=== PATIENT | female | born 1970 | race American Indian/Alaskan Native ===

== ENCOUNTER 2019-03-09 10:41 | Inpatient (IN) | payer MEDICAID ==
[2019-03-09] MEDS ORDERED: ZOFRAN ODT PO ONE (11:47)
[2019-03-09] MEDS ORDERED: ANTIVERT PO ONE (11:47)
--- NOTE | 2019-03-09 12:43 | Emergency Department Report ---
ED Dizziness HPI - General Chief Complaint: Dizziness Stated Complaint: DIZZINESS Time Seen by Provider: 03/09/19 11:44 Source: patient Mode of arrival: Wheelchair Limitations: No Limitations - History of Present Illness Initial Comments: Patient is a 48-year-old female who has a past medical history of some mild hypertension in the past who is not been taking any medications who is complaining of right-sided headache for the past 2 days. Patient states yesterday morning she began having some throbbing headaches in the right frontal and right yazidism area. This states it lasted several hours and then resolved but has returned. Patient states she also has some dizziness and nausea and vomiting. States she has a spinning sensation when she lays flat and when she walks she feels uneven. Patient denies any weakness of arms legs chest pain shortness of breath fevers or chills at this time. - Related Data Previous Rx's Medication Instructions Recorded Last Taken Type HYDROcodone/ACETAMINOPHEN 1 each PO Q6H PRN #30 tablet 08/30/18 Unknown Rx [Hydrocodone-Acetamin 5-325 mg] Allergies Allergy/AdvReac Type Severity Reaction Status Date / Time No Known Allergies Allergy Verified 08/24/18 09:58 ED Review of Systems ROS: Stated complaint: DIZZINESS Other details as noted in HPI Comment: All other systems reviewed and negative ED Past Medical Hx - Past Medical History Previous Medical History?: No Hx Hypertension: No Hx HIV: No - Surgical History Past Surgical History?: Yes Additional Surgical History: hernia repair - Social History Smoking Status: Current Every Day Smoker Substance Use Type: None - Medications Home Medications: Home Medications Medication Instructions Recorded Confirmed Last Taken Type HYDROcodone/ACETAMINOPHEN 1 each PO Q6H PRN #30 tablet 08/30/18 Unknown Rx [Hydrocodone-Acetamin 5-325 mg] ED Physical Exam - General Limitations: No Limitations General appearance: alert, in no apparent distress - Head Head exam: Present: atraumatic, normocephalic - Eye Eye exam: Present: normal appearance, PERRL, EOMI - ENT ENT exam: Present: normal exam, mucous membranes moist - Neck Neck exam: Present: normal inspection - Respiratory Respiratory exam: Present: normal lung sounds bilaterally. Absent: respiratory distress, wheezes, rales - Cardiovascular Cardiovascular Exam: Present: regular rate, normal rhythm. Absent: systolic murmur, diastolic murmur, rubs, gallop - GI/Abdominal GI/Abdominal exam: Present: soft, normal bowel sounds. Absent: distended, tenderness, guarding, rebound - Extremities Exam Extremities exam: Present: normal inspection - Back Exam Back exam: Present: normal inspection - Neurological Exam Neurological exam: Present: alert, oriented X3, CN II-XII intact. Absent: motor sensory deficit - Psychiatric Psychiatric exam: Present: normal affect, normal mood - Skin Skin exam: Present: warm, dry, intact, normal color. Absent: rash ED Course Vital Signs 03/09/19 03/09/19 03/09/19 10:56 12:45 13:00 Temperature 97.9 F Pulse Rate 63 65 75 Respiratory 16 18 18 Rate Blood Pressure 161/87 130/67 142/69 [Right] O2 Sat by Pulse 100 100 100 Oximetry 03/09/19 03/09/19 03/09/19 13:15 13:30 13:45 Temperature Pulse Rate 69 70 69 Respiratory 17 17 17 Rate Blood Pressure 139/57 124/59 152/69 [Right] O2 Sat by Pulse 100 100 100 Oximetry - Reevaluation(s) Reevaluation #1: 03/09/19 12:42 During our initial discussion with the patient patient states for the past 2-3 days she's had some on and off dizziness is worse when she landed flat she feels suspended sensation with nausea and vomiting. Patient has some right-sided headache which goes to believe the patient likely has benign positional vertigo however at 12:30 patient states that she was trying to get to the door of her room and could hardly walk she feels as though there is some tightness of the chest and weakness of her left arm and leg. Patient is noted to have a left arm drift and a code stroke is being called at this time. 03/09/19 12:46 Please see [facility] was retroflexed change from her initial exam ED Medical Decision Making - Lab Data Result diagrams: 03/09/19 Unknown 03/09/19 Unknown Lab Results 03/09/19 03/09/19 03/09/19 Range/Units 13:23 Unknown Unknown WBC 14.3 H (4.5-11.0) K/mm3 RBC 4.69 (3.65-5.03) M/mm3 Hgb 14.2 (10.1-14.3) gm/dl Hct 43.6 H (30.3-42.9) % MCV 93 (79-97) fl MCH 30 (28-32) pg MCHC 33 (30-34) % RDW 13.9 (13.2-15.2) % Plt Count 328 (140-440) K/mm3 Lymph # [place] Add Manual Diff Complete Total Counted 100 Seg Neuts % (Manual) 67.0 (40.0-70.0) % Band Neutrophils % 1.0 % Lymphocytes % (Manual) 27.0 (13.4-35.0) % Reactive Lymphs % (Man) 0 % Monocytes % (Manual) 5.0 (0.0-7.3) % Eosinophils % (Manual) 0 (0.0-4.3) % Basophils % (Manual) 0 (0.0-1.8) % Metamyelocytes % 0 % Myelocytes % 0 % Promyelocytes % 0 % Blast Cells % 0 % Nucleated RBC % Not Reportable Seg Neutrophils # Man 9.6 H (1.8-7.7) K/mm3 Band Neutrophils # 0.1 K/mm3 Lymphocytes # (Manual) 3.9 (1.2-5.4) K/mm3 Abs React Lymphs (Man) 0.0 K/mm3 Monocytes # (Manual) 0.7 (0.0-0.8) K/mm3 Eosinophils # (Manual) 0.0 (0.0-0.4) K/mm3 Basophils # (Manual) 0.0 (0.0-0.1) K/mm3 Metamyelocytes # 0.0 K/mm3 Myelocytes # 0.0 K/mm3 Promyelocytes # 0.0 K/mm3 Blast Cells # 0.0 K/mm3 WBC Morphology Not Reportable Hypersegmented Neuts Not Reportable Hyposegmented Neuts Not Reportable Hypogranular Neuts Not Reportable Smudge Cells Not Reportable Toxic Granulation Not Reportable Toxic Vacuolation Not Reportable Dohle Bodies Not Reportable Pelger-Huet Anomaly Not Reportable Lora Rods Not Reportable Platelet Estimate Consistent w auto Clumped Platelets Not Reportable Plt Clumps, EDTA Not Reportable Large Platelets Not Reportable Giant Platelets Not Reportable Platelet Satelliting Not Reportable Plt Morphology Comment Not Reportable RBC Morphology Normal Dimorphic RBCs Not Reportable Polychromasia Not Reportable Hypochromasia Not Reportable Poikilocytosis Not Reportable Anisocytosis Not Reportable Microcytosis Not Reportable Macrocytosis Not Reportable Spherocytes Not Reportable Pappenheimer Bodies Not Reportable Sickle Cells Not Reportable Target Cells Not Reportable Tear Drop Cells Not Reportable Ovalocytes Not Reportable Helmet Cells Not Reportable [place] Bodies Not Reportable Lake Rings Not Reportable [place] Cells Not Reportable Bite Cells Not Reportable Crenated Cell Not Reportable Elliptocytes Not Reportable Acanthocytes (Spur) Not Reportable Rouleaux Not Reportable Hemoglobin C Crystals Not Reportable Schistocytes Not Reportable Malaria parasites Not Reportable Florentin Bodies Not Reportable Hem Pathologist Commnt No PT 12.7 (12.2-14.9) Sec. INR 0.98 (0.87-1.13) APTT 29.7 (24.2-36.6) Sec. Thrombin Time 15.4 (15.1-19.6) Sec. Sodium Potassium Chloride Carbon Dioxide Anion Gap BUN Creatinine Estimated GFR BUN/Creatinine Ratio Glucose POC Glucose 90 (70-105) Calcium Total Creatine Kinase CK-MB (CK-2) CK-MB (CK-2) Rel Index Troponin T 03/09/19 Range/Units Unknown WBC (4.5-11.0) K/mm3 RBC (3.65-5.03) M/mm3 Hgb (10.1-14.3) gm/dl Hct (30.3-42.9) % MCV (79-97) fl MCH (28-32) pg MCHC (30-34) % RDW (13.2-15.2) % Plt Count (140-440) K/mm3 Lymph # Add Manual Diff Total Counted Seg Neuts % (Manual) (40.0-70.0) % Band Neutrophils % % Lymphocytes % (Manual) (13.4-35.0) % Reactive Lymphs % (Man) % Monocytes % (Manual) (0.0-7.3) % Eosinophils % (Manual) (0.0-4.3) % Basophils % (Manual) (0.0-1.8) % Metamyelocytes % % Myelocytes % % Promyelocytes % % Blast Cells % % Nucleated RBC % Seg Neutrophils # Man (1.8-7.7) K/mm3 Band Neutrophils # K/mm3 Lymphocytes # (Manual) (1.2-5.4) K/mm3 Abs React Lymphs (Man) K/mm3 Monocytes # (Manual) (0.0-0.8) K/mm3 Eosinophils # (Manual) (0.0-0.4) K/mm3 Basophils # (Manual) (0.0-0.1) K/mm3 Metamyelocytes # K/mm3 Myelocytes # K/mm3 Promyelocytes # K/mm3 Blast Cells # K/mm3 WBC Morphology Hypersegmented Neuts Hyposegmented Neuts Hypogranular Neuts Smudge Cells Toxic Granulation Toxic Vacuolation Dohle Bodies Pelger-Huet Anomaly Lora Rods Platelet Estimate Clumped Platelets Plt Clumps, EDTA Large Platelets Giant Platelets Platelet Satelliting Plt Morphology Comment RBC Morphology Dimorphic RBCs Polychromasia Hypochromasia Poikilocytosis Anisocytosis Microcytosis Macrocytosis Spherocytes Pappenheimer Bodies Sickle Cells Target Cells Tear Drop Cells Ovalocytes Helmet Cells [place] Bodies [place] Rings [place] Cells Bite Cells Crenated Cell Elliptocytes Acanthocytes (Spur) Rouleaux Hemoglobin C Crystals Schistocytes Malaria parasites Florentin Bodies Hem Pathologist Commnt PT (12.2-14.9) Sec. INR (0.87-1.13) APTT (24.2-36.6) Sec. Thrombin Time (15.1-19.6) Sec. Sodium TNR Potassium TNR Chloride TNR Carbon Dioxide TNR Anion Gap TNR BUN TNR Creatinine TNR Estimated GFR TNR BUN/Creatinine Ratio TNR Glucose TNR POC Glucose (70-105) Calcium TNR Total Creatine Kinase TNR CK-MB (CK-2) TNR CK-MB (CK-2) Rel Index TNR Troponin T TNR - EKG Data -: EKG Interpreted by Nv EKG shows normal: sinus rhythm, axis, intervals, QRS complexes, ST-T waves Rate: normal - EKG Data Interpretation: normal EKG - Radiology Data [facility] [address] [place] [address] Cat Scan Report Signed Patient: SHELBY DONG MR#: [id number] : 1970 Acct:[id number] Age/Sex: 48 / F ADM Date: 03/09/19 Loc: ED Attending Dr: Ordering Physician: COLIN TAVERAS MD Date of Service: 03/09/19 Procedure(s): CT head/brain wo con Accession Number(s): [id number] cc: COLIN TAVERAS MD CT HEAD WITHOUT CONTRAST: HISTORY: New onset headache. TECHNIQUE: Sequential 2.5mm CT images. COMPARISON: none. FINDINGS: Cerebral Parenchyma: Within normal limits. Cerebellum: Within normal limits. Brainstem: Within normal limits. Ventricles: Normal. Sella: Normal. Extra-axial spaces: Normal. Basal Cisterns: Normal. Intracranial Hemorrhage: None. Midline Shift: None. Calvarium: Normal. Sinuses: Normal. Mastoid Air Cells: Normal. Visualized Orbits: Normal. IMPRESSION: Cranial CT scan within normal limits. These findings were discussed with Dr. Taveras in the emergency department at 1251 hrs. Transcribed By: TTR Dictated By: KRISTIAN JAVED JR, MD Electronically Authenticated By: KRISTIAN JAVED JR, MD Signed Date/Time: 03/09/19 1251 DD/ 1250 TD/TT: 03/09/19 1251 - Medical Decision Making Patient is a 48-year-old female who initially presented with mild right sided headache with dizziness. Patient was feeling a spinning sensation more so when she lays flat. This occurred yesterday morning and then resolved and has returned. Patient while in the emergency department noted that she had some left sided weakness arm and leg and was experiencing some chest discomfort. Patient's weakness has resolved at the time of admission however her headache is still present. Patient's differential includes CVA TIA complex migraine. Patient to be admitted to the hospital for further management Critical care attestation.: If time is entered above; I have spent that time in minutes in the direct care of this critically ill patient, excluding procedure time. ED Disposition Clinical Impression: Weakness due to cerebrovascular accident (CVA) Disposition: OP ADMIT IP TO THIS HOSP Is pt being admited?: Yes Does the pt Need Aspirin: No Condition: Stable Time of Disposition: 15:03 - Assessment Assessment Interval: Baseline - Level of Consciousness 1a. Level of Consciousness: alert/keenly responsive - LOC Questions 1b. LOC Questions: answers both correctly - LOC Command 1c. LOC Commands: performs tasks correctly - Best Gaze 2. Best Gaze: normal - Visual 3. Visual: no visual loss - Facial Palsy 4. Facial Palsy: normal symmetrical movement - Motor Arm 5a. Motor Arm Left: drift 5b. Motor Arm Right: no drift - Motor Leg 6a. Motor Leg Left: drift 6b. Motor Leg Right: no drift - Limb Ataxia 7. Limb Ataxia: absent - Sensory 8. Sensory: mild/moderate sensory loss - Best Language 9. Best Language: no aphasia - Dysarthria 10. Dysarthria: normal - Extinction and Inattention 11. Extinction/Inattention: no abnormality - Scoring Total Score: 3 Stroke Severity: Minor Stroke
--- NOTE | 2019-03-09 12:56 | Cat Scan Report ---
CT HEAD WITHOUT CONTRAST: HISTORY: New onset headache. TECHNIQUE: Sequential 2.5mm CT images. COMPARISON: none. FINDINGS: Cerebral Parenchyma: Within normal limits. Cerebellum: Within normal limits. Brainstem: Within normal limits. Ventricles: Normal. Sella: Normal. Extra-axial spaces: Normal. Basal Cisterns: Normal. Intracranial Hemorrhage: None. Midline Shift: None. Calvarium: Normal. Sinuses: Normal. Mastoid Air Cells: Normal. Visualized Orbits: Normal. IMPRESSION: Cranial CT scan within normal limits. These findings were discussed with Dr. Taveras in the emergency department at 1251 hrs.
[2019-03-09] MEDS ORDERED: TORADOL IV ONE (13:15)
[2019-03-09] MEDS ORDERED: ASPIRIN PO ONE (13:15)
[2019-03-09 13:24] LABS: Hematocrit 43.6 % (30.3-42.9); Hemoglobin 14.2 gm/dl (10.1-14.3); Mean Corpuscular HGB Conc 33 % (30-34); Mean Corpuscular Volume 93 fl (79-97); Platelet Count 328 K/mm3 (140-440); Red Blood Count 4.69 M/mm3 (3.65-5.03); Red Cell Distribution Width 13.9 % (13.2-15.2)
--- NOTE | 2019-03-09 13:25 | Emergency Department Report ---
ED Neuro Deficit HPI - General Chief Complaint: Dizziness Stated Complaint: DIZZINESS Time Seen by Provider: 03/09/19 11:44 Source: patient Mode of arrival: Wheelchair Limitations: No Limitations - History of Present Illness Initial Comments: [facility] DATE: March 09, 2019 Impression: Imbalance left-sided weakness numbness-the patient has a pretty bad headache no history of prior migraines could be minor stroke or TIA or migrainous phenomenon. Can treat headache with non-vasoactive medications. Would give aspirin 325 mg and admitted for stroke workup and inpatient neurology consultation. Recommend tobacco use cessation. Not a tpa candidate due to: Last known normal over 4.5 hours ago Symptoms (not) consistent with LVO therefore no role for neuro-intervention Differential Diagnosis: Complicated migraine, TIA, stroke 1. Cardioembolic stroke 2. Small vessel disease/lacune 3. Thromboembolic, [id number] mechanism 4. Hypercoagulable state-related infarct 5. Transient ischemic attack 6. Thrombotic mechanism, large artery disease Comments: Last known normal 23:00 Door time b 10:56 [employer] contacted: 12:48 [facility] at bedside: 12:52 NIHSS assessment time: 12:52 Recommendations: -Give aspirin -Admit for stroke workup and inpatient neurology consultation -Can treat headache with non-vasoactive headache medications -Permissive hypertension per non-TPA stroke protocol -Tobacco use cessation Inpatient neurology consultation Inpatient stroke evaluation as per Neurology/ Internal Medicine Discussed with ED MD Please call with questions --------- CC headache dizziness left-sided weakness and numbness History of Present Illness Patient is a 48-year-old woman with no real past medical history but is a smoker of one pack per day. She said that yesterday for a couple of hours she felt dizzy with some headache and left-sided weakness and numbness. The symptoms lasted 2-3 hours and then resolved. She went to bed last night at 23:00 and didn't have any issues. Then this morning woke up at 7 AM and as soon as she stood up and felt very dizzy. She fell a motion sensation of headache. The headache is moderate in intensity. She then while in the emergency department developed a sense of left-sided weakness and tingling. Her last known normal at 23:00. She does not take any blood thinners. Diagnostic: CT head without contrast no acute changes Exam: 1a- LOC: Keenly responsive - =0 1b- LOC questions: Answers both questions correctly - 0 1c- LOC commands- Performs both tasks correctly- 0 2- Gaze: Normal; no gaze paresis or gaze deviation - 0 3- Visual Lemus: normal, no Visual field deficit - 0 4- Facial movements: no facial palsy - 0 5- Upper limb motor - left upper extremity she doesn't hold as high slight drift=1 6- Lower limb motor - no drift - 0 7- Limb Coordination: absent ataxia - 0 8- Sensory : no sensory loss - 0 she denies any sensory loss but feels like there is a sensory disturbance on the left 9- Language - No aphasia - 0 10- Speech - No dysarthria -0 11- Neglect / Extinction - none found -0 NIHSS score 1 Medical Decision Making: - Extensive number of diagnosis or management options are considered above. - Extensive amount of complex data reviewed. - High risk of complication and/or morbidity or mortality are associated with differential diagnostic considerations above. - There may be Uncertain outcome and increased probability of prolonged functional impairment or high probability of severe prolonged functional impairment associated with some of these differential diagnosis. Medical Data Reviewed: 1.Data reviewed include clinical labs, radiology, Medical Tests; 2.Tests results discussed w/performing or interpreting physician; 3.Obtaining/reviewing old medical records; 4.Obtaining case history from another source; 5.Independent review of image, tracing or specimen. Patient was informed the Neurology Consult would happen via telehealth (remote video) and consented to receiving care in this manner. - Related Data Home Medications: Previous Rx's Medication Instructions Recorded Last Taken Type HYDROcodone/ACETAMINOPHEN 1 each PO Q6H PRN #30 tablet 08/30/18 Unknown Rx [Hydrocodone-Acetamin 5-325 mg] Allergies/Adverse Reactions: Allergies Allergy/AdvReac Type Severity Reaction Status Date / Time No Known Allergies Allergy Verified 08/24/18 09:58 ED Review of Systems ROS: Stated complaint: DIZZINESS Other details as noted in HPI ED Past Medical Hx - Past Medical History Previous Medical History?: No Hx Hypertension: No Hx HIV: No - Surgical History Past Surgical History?: Yes Additional Surgical History: hernia repair - Social History Smoking Status: Current Every Day Smoker Substance Use Type: None - Medications Home Medications: Home Medications Medication Instructions Recorded Confirmed Last Taken Type HYDROcodone/ACETAMINOPHEN 1 each PO Q6H PRN #30 tablet 08/30/18 Unknown Rx [Hydrocodone-Acetamin 5-325 mg] ED Neuro Physical Exam - General Limitations: No Limitations General appearance: alert, in no apparent distress Suspected Stroke: Yes - NIHSS Assessment Interval: Baseline 1a. Level of Consciousness: alert/keenly responsive 1b. LOC Questions: answers both correctly 1c. LOC Commands: performs tasks correctly 2. Best Gaze: normal 3. Visual: no visual loss 4. Facial Palsy: normal symmetrical movement 5b. Motor Arm Right: no drift 5a. Motor Arm Left: drift 6a. Motor Leg Left: no drift 6b. Motor Leg Right: no drift 7. Limb Ataxia: absent 8. Sensory: normal 9. Best Language: no aphasia 10. Dysarthria: normal 11. Extinction/Inattention: no abnormality Total Score: 1 Stroke Severity: Minor Stroke ED Course Vital Signs 03/09/19 10:56 Temperature 97.9 F Pulse Rate 63 Respiratory 16 Rate Blood Pressure 161/87 [Right] O2 Sat by Pulse 100 Oximetry Critical care attestation.: If time is entered above; I have spent that time in minutes in the direct care of this critically ill patient, excluding procedure time. ED Disposition Clinical Impression: Weakness due to cerebrovascular accident (CVA) Disposition: -09 OP ADMIT IP TO THIS HOSP Is pt being admited?: Yes Condition: Stable Referrals: KECIA CAMARA MD [Primary Care Provider] - 3-5 Days
[2019-03-09 13:34] LABS: INR 0.98 (0.87-1.13)
[2019-03-09 13:35] LABS: Partial Thromboplastin Time 29.7 Sec. (24.2-36.6); Thrombin Time 15.4 Sec. (15.1-19.6)
[2019-03-09 14:28] LABS: BUN/Creatinine Ratio TNR; Blood Urea Nitrogen TNR mg/dL (7-17)
[2019-03-09 14:29] LABS: Calcium TNR mg/dL (8.4-10.2); Creatine Kinase MB TNR ng/mL (0.0-4.0); Hemolysis Index TNR
[2019-03-09 14:34] LABS: Band Neutrophils # (Manual) 0.1 K/mm3; Basophils % (Manual) 0 % (0.0-1.8); Eosinophils % (Manual) 0 % (0.0-4.3); Total Cells Counted 100
[2019-03-09 14:35] LABS: Platelet Estimate Consistent w Auto; RBC Morphology Normal
--- NOTE | 2019-03-09 14:38 | History and Physical Report ---
History of Present Illness Chief complaint: Im dizzy, and I cant walk History of present illness: 48 YO Female with HTN with medication noncompliance, Obesity, Nicotine Dependence presents to ED for evaluation. Pt reports that she has experienced Right sided Headache over the past 2 days with persistent symptoms over the same time frame. Pt also reports acute onset dizziness, weakness, and gait instability and feeling as though she cannot stand up and walk as well as weakness in the left arm and leg. EMS notified, and upon arrival the patient was found to have a neurologic deficit. A code stroke was called and the patient was transported to [facility]. Pt seen an evaluated in ED and found to have symptoms consistent with Acute CVA as well as SIRS. Teleneurology consulted. Pt deemed not to be a candidate for TPA. Pt initiated on CVA protocol and admitted to telemetry. Pt denies fever, chills, CP, Palpitations, NVD, Trauma, Loss of bowel/bladder continence, loss of consciousness, seizure, productive cough, hemoptysis, unilateral leg swelling, calf pain, individual/family history of DVT/PE/Bleeding/Blood Clotting Disorders. No prior admission for review. All listed medication reconciled at time of admission. Past History Past Medical History: hypertension, other (Obesity) Past Surgical History: hernia repair Social history: single, smoking Family history: hypertension Medications and Allergies Allergies Allergy/AdvReac Type Severity Reaction Status Date / Time No Known Allergies Allergy Verified 08/24/18 09:58 Home Medications Medication Instructions Recorded Confirmed Last Taken Type HYDROcodone/ACETAMINOPHEN 1 each PO Q6H PRN #30 tablet 08/30/18 Unknown Rx [Hydrocodone-Acetamin 5-325 mg] Review of Systems Constitutional: no weight loss, no weight gain, no fever, no chills Ears, nose, mouth and throat: no ear pain, no ear discharge, no tinnitis, no decreased hearing, no nose pain Breasts: no change in shape, no swelling, no mass Cardiovascular: no chest pain, no orthopnea, no palpitations, no rapid/irregular heart beat, no edema, no syncope Respiratory: no cough, no cough with sputum, no excessive sputum, no hemoptysis, no shortness of breath Gastrointestinal: no nausea, no vomiting, no diarrhea, no constipation Genitourinary Female: no pelvic pain, no flank pain, no dysuria, no urinary frequency Rectal: no pain, no incontinence, no bleeding Musculoskeletal: no neck stiffness, no neck pain, no shooting arm pain, no arm numbness/tingling, no low back pain, no shooting leg pain Integumentary: no rash, no pruritis, no redness, no sores, no wounds Neurological: paralysis, weakness, ataxia, vertigo, headaches, gait dysfunction, no syncope, no change in speech, no confusion Psychiatric: no anxiety, no memory loss, no change in sleep habits, no sleep dis turbances, no insomnia, no hypersomnia Endocrine: no cold intolerance, no heat intolerance, no polyphagia, no excessive thirst, no polydipsia Hematologic/Lymphatic: no easy bruising, no easy bleeding, no lymphadenopathy, no lymphedema Allergic/Immunologic: no urticaria, no allergic rhinitis, no wheezing, no persistent infections, no anaphylaxis Exam - Constitutional Vitals: Temp Pulse Resp BP Pulse Ox 97.9 F 69 17 152/69 100 03/09/19 10:56 03/09/19 13:45 03/09/19 13:45 03/09/19 13:45 03/09/19 13:45 General appearance: Present: no acute distress, well-nourished - EENT Eyes: Present: PERRL ENT: hearing intact, clear oral mucosa - Neck Neck: Present: supple, normal ROM - Respiratory Respiratory effort: normal Respiratory: bilateral: CTA - Cardiovascular Heart Sounds: Present: S1 & S2. Absent: rub, click - Extremities Extremities: pulses symmetrical, No edema Peripheral Pulses: within normal limits - Abdominal General gastrointestinal: Present: soft, non-tender, non-distended, normal bowel sounds Female genitourinary: Present: normal - Integumentary Integumentary: Present: clear, warm, dry - Musculoskeletal Musculoskeletal: left sided weakness - Psychiatric Psychiatric: appropriate mood/affect, intact judgment & insight - Neurologic Neurologic: CNII-XII intact, moves all extremities, no gait normal Results - Labs CBC & Chem 7: 03/09/19 Unknown 03/09/19 Unknown Labs: Abnormal lab results 03/09/19 Range/Units Unknown WBC 14.3 H (4.5-11.0) K/mm3 Hct 43.6 H (30.3-42.9) % Seg Neutrophils # Man 9.6 H (1.8-7.7) K/mm3 Assessment and Plan - Patient Problems (1) CVA (cerebral vascular accident) Current Visit: Yes Status: Acute Qualifiers: Precerebral and cerebral artery: middle cerebral artery Laterality of affected vessel: right Plan to address problem: Stroke Protocol: Admit to telemetry, CT head, MRI Brain, MRA Brain, Echo, Carotid Doppler, PT/OT/Speech, Lipid panel, Statin therapy, neuro check, Neurology consulted in ED. (2) SIRS (systemic inflammatory response syndrome) Current Visit: Yes Status: Acute Plan to address problem: CBC, CMP, Urinalysis, empiric antibiotic x3 days. (3) HTN (hypertension) Current Visit: Yes Status: Acute Qualifiers: Hypertension type: essential hypertension Qualified Code(s): I10 - Essential (primary) hypertension Plan to address problem: Monitor BP q shift, continue medical management. (4) Nicotine dependence unspecified, with withdrawal Current Visit: Yes Status: Acute Qualifiers: Nicotine product type: cigarettes Qualified Code(s): F17.213 - Nicotine dep endence, cigarettes, with withdrawal Plan to address problem: Smoking cessation counseling, supportive care. (5) Obesity Current Visit: Yes Status: Acute Qualifiers: Obesity type: due to excess calories Body mass index: BMI 32.0-32.9 Plan to address problem: Increased physical activity at discharge, balanced diet, (6) DVT prophylaxis Current Visit: Yes Status: Acute Plan to address problem: SCD to BLE while in bed, prophylactic lovenox
[2019-03-09] MEDS ORDERED: REGLAN PO PRN (14:39)
[2019-03-09] MEDS ORDERED: MILK OF MAGNESIA PO PRN (14:39)
[2019-03-09] MEDS ORDERED: SODIUM CHLORIDE FLUSH SYRINGE 10 ML IV PRN (14:39)
[2019-03-09] MEDS ORDERED: DULCOLAX PR PRN (14:39)
[2019-03-09] MEDS ORDERED: TYLENOL PO PRN (14:39)
[2019-03-09] MEDS ORDERED: PROVENTIL IH PRN (14:39)
[2019-03-09] MEDS ORDERED: ZOFRAN IV PRN (14:39)
[2019-03-09] MEDS ORDERED: PHENERGAN PR PRN (14:39)
[2019-03-09] MEDS ORDERED: NORCO 5/325 PO PRN (14:42)
--- NOTE | 2019-03-09 15:07 | Cat Scan Report ---
CTA NECK: HISTORY: Dizziness, left-sided weakness. TECHNIQUE: Helical CT following IV contrast. Sagittal and coronal reformatted images. 3D volume rendering technique. Stenosis was calculated using NASCET criteria with the distal ICA being standard diameter. FINDINGS: The visualized aortic arch, innominate artery and proximal bilateral subclavian arteries are widely patent with less than 20% stenosis. Within the right carotid system: less than 20% stenosis. Within the left carotid system: less than 20% stenosis. The cervical vertebral arteries are patent with less than 20% stenosis. IMPRESSION: Unremarkable CTA of the neck.
--- NOTE | 2019-03-09 15:09 | Cat Scan Report ---
CTA HEAD: HISTORY: Dizziness, left-sided weakness. TECHNIQUE: Helical CT images after IV contrast with 0.625mm reformations. Sagittal and coronal reformats. Rotational MIP images. 3D volume rendering technique. FINDINGS: The arterial structures of the anterior and posterior circulations are patent throughout. No evidence for stenosis, occlusion or aneurysm. IMPRESSION: Unremarkable CTA head.
[2019-03-09] MEDS: ROCEPHIN/NS 1 GM/50 ML 1 GM/50 ML BAG IV SCH (17:13)
[2019-03-09] MEDS ORDERED: ROCEPHIN/NS 1 GM/50 ML 1 GM/50 ML BAG IV ONE (17:15)
--- NOTE | 2019-03-09 17:44 | Magnetic Resonance Report ---
PROCEDURE: MR BRAIN WO CON TECHNIQUE: Magnetic resonance imaging of the brain was performed without contrast material. HISTORY: stroke. New headaches. COMPARISONS: None . FINDINGS: The signal intensity from the substance of the brain appears normal. Normal gibbons-white matter differe ntiation is visualized. No mass lesions, mass effect or parenchymal hemorrhage are identified. No abn ormal extra-axial fluid collections or masses are seen. The ventricles are normal size and are midlin e. The corpus callosum, region of the pituitary fossa and foramen magnum show no abnormalities. The paranasal sinuses and the mastoid air cells are clear. IMPRESSION: Negative MRI of the brain. No acute abnormalities are seen. No acute ischemic abnormalities are visua lized. This document is electronically signed by Erasto Will MD., March 09 2019 05:42:42 PM ET
--- NOTE | 2019-03-09 17:48 | Magnetic Resonance Report ---
PROCEDURE: MR MRA/MRV HEAD WO CON TECHNIQUE: Axial 3-D [id number] MR angiography of the [place] and brain was performed. The source images were reconstructed in various views using maximum intensity projection. HISTORY: stroke . Headache. COMPARISONS: None . FINDINGS: Visualized vertebral arteries appear widely patent. The basilar artery and posterior cerebral arterie s are also widely patent. His eyes internal carotid arteries, the carotid siphons, the A1 segments, t he anterior and middle cerebral arteries are also widely patent. No changes are seen that would sugge st aneurysm or vascular malformation. IMPRESSION: The anterior and posterior intracranial circulation are intact. This document is electronically signed by Erasto Will MD., March 09 2019 05:46:31 PM ET
[2019-03-09 17:52] LABS: Alanine Aminotransferase 13 units/L (7-56); Albumin 3.8 g/dL (3.9-5); BUN/Creatinine Ratio 12; Blood Urea Nitrogen 13 mg/dL (7-17); Calcium 8.7 mg/dL (8.4-10.2); Hemolysis Index 19
[2019-03-10] MEDS: ASPIRIN PO SCH (09:09)
[2019-03-10] MEDS: HABITROL TD SCH (09:10)
[2019-03-10] MEDS: ROCEPHIN/NS 1 GM/50 ML 1 GM/50 ML BAG IV SCH (09:10)
[2019-03-10 09:30] LABS: Bacteria,Urine 1+ /HPF (Negative); Bilirubin,Urine NEG (Negative); Blood,Urine SM (Negative); Color,Urine Yellow (Yellow); Mucus,Urine 1+ /HPF; Protein,Urine <15 mg/dL mg/dL (Negative); Urobilinogen,Urine < 2.0 mg/dL (<2.0)
[2019-03-10 11:12] LABS: Chol/HDL Ratio 4.81 %
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
[2019-03-11] MEDS: HABITROL TD SCH (09:08)
[2019-03-11] MEDS: ASPIRIN PO SCH (09:08)
[2019-03-11] MEDS: ROCEPHIN/NS 1 GM/50 ML 1 GM/50 ML BAG IV SCH (09:09)
[2019-03-11 13:05] VITALS: BP 138/78
--- NOTE | 2019-03-11 13:49 | Progress Note ---
Assessment and Plan Assessment and plan: Vestibular migraine. Per Neurology Hypertension. Stsble Paresthesias. Etiology likely secondary to HTN History Interval history: No new issues overnight Hospitalist Physical - Constitutional Vitals: Temp Pulse Resp BP Pulse Ox 98.2 F 61 18 138/78 99 03/11/19 13:02 03/11/19 13:02 03/11/19 13:02 03/11/19 13:02 03/11/19 13:02 General appearance: Present: no acute distress, well-nourished - EENT Eyes: Present: PERRL, EOM intact ENT: hearing intact, clear oral mucosa, dentition normal - Neck Neck: Present: supple, normal ROM - Respiratory Respiratory effort: normal Respiratory: bilateral: CTA - Cardiovascular Rhythm: regular Heart Sounds: Present: S1 & S2. Absent: gallop, rub - Extremities Extremities: no ischemia, No edema, Full ROM - Abdominal General gastrointestinal: soft, non-tender, non-distended, normal bowel sounds - Integumentary Integumentary: Present: clear, warm, dry - Neurologic Neurologic: CNII-XII intact, moves all extremities Results - Labs CBC & Chem 7: 03/09/19 Unknown 03/09/19 Unknown Labs: Laboratory Last Values WBC 14.3 K/mm3 (4.5-11.0) H 03/09/19 Unknown RBC 4.69 M/mm3 (3.65-5.03) 03/09/19 Unknown Hgb 14.2 gm/dl (10.1-14.3) 03/09/19 Unknown Hct 43.6 % (30.3-42.9) H 03/09/19 Unknown MCV 93 fl (79-97) 03/09/19 Unknown MCH 30 pg (28-32) 03/09/19 Unknown MCHC 33 % (30-34) 03/09/19 Unknown RDW 13.9 % (13.2-15.2) 03/09/19 Unknown Plt Count 328 K/mm3 (140-440) 03/09/19 Unknown Lymph # Sample Dye Mixer 03/09/19 Unknown Add Manual Diff Complete 03/09/19 Unknown Total Counted 100 03/09/19 Unknown Seg Neuts % (Manual) 67.0 % (40.0-70.0) 03/09/19 Unknown 1.0 % 03/09/19 Unknown 27.0 % (13.4-35.0) 03/09/19 Unknown Reactive Lymphs % (Man) 0 % 03/09/19 Unknown 5.0 % (0.0-7.3) 03/09/19 Unknown 0 % (0.0-4.3) 03/09/19 Unknown 0 % (0.0-1.8) 03/09/19 Unknown 0 % 03/09/19 Unknown 0 % 03/09/19 Unknown 0 % 03/09/19 Unknown 0 % 03/09/19 Unknown Nucleated RBC % Not Reportable 03/09/19 Unknown Seg Neutrophils # Man 9.6 K/mm3 (1.8-7.7) H 03/09/19 Unknown Band Neutrophils # 0.1 K/mm3 03/09/19 Unknown 3.9 K/mm3 (1.2-5.4) 03/09/19 Unknown Abs React Lymphs (Man) 0.0 K/mm3 03/09/19 Unknown 0.7 K/mm3 (0.0-0.8) 03/09/19 Unknown 0.0 K/mm3 (0.0-0.4) 03/09/19 Unknown 0.0 K/mm3 (0.0-0.1) 03/09/19 Unknown 0.0 K/mm3 03/09/19 Unknown 0.0 K/mm3 03/09/19 Unknown 0.0 K/mm3 03/09/19 Unknown Blast Cells # 0.0 K/mm3 03/09/19 Unknown WBC Morphology Not Reportable 03/09/19 Unknown Hypersegmented Neuts Not Reportable 03/09/19 Unknown Hyposegmented Neuts Not Reportable 03/09/19 Unknown Hypogranular Neuts Not Reportable 03/09/19 Unknown Not Reportable 03/09/19 Unknown Not Reportable 03/09/19 Unknown Not Reportable 03/09/19 Unknown Not Reportable 03/09/19 Unknown Not Reportable 03/09/19 Unknown Not Reportable 03/09/19 Unknown Consistent w auto 03/09/19 Unknown Not Reportable 03/09/19 Unknown Plt Clumps, EDTA Not Reportable 03/09/19 Unknown Not Reportable 03/09/19 Unknown Not Reportable 03/09/19 Unknown Not Reportable 03/09/19 Unknown Plt Morphology Comment Not Reportable 03/09/19 Unknown RBC Morphology Normal 03/09/19 Unknown Dimorphic RBCs Not Reportable 03/09/19 Unknown Not Reportable 03/09/19 Unknown Not Reportable 03/09/19 Unknown Not Reportable 03/09/19 Unknown Not Reportable 03/09/19 Unknown Not Reportable 03/09/19 Unknown Not Reportable 03/09/19 Unknown Not Reportable 03/09/19 Unknown Not Reportable 03/09/19 Unknown Not Reportable 03/09/19 Unknown Not Reportable 03/09/19 Unknown Not Reportable 03/09/19 Unknown Not Reportable 03/09/19 Unknown Not Reportable 03/09/19 Unknown Not Reportable 03/09/19 Unknown Not Reportable 03/09/19 Unknown Not Reportable 03/09/19 Unknown Not Reportable 03/09/19 Unknown Not Reportable 03/09/19 Unknown Not Reportable 03/09/19 Unknown Acanthocytes (Spur) Not Reportable 03/09/19 Unknown Rouleaux Not Reportable 03/09/19 Unknown Not Reportable 03/09/19 Unknown Not Reportable 03/09/19 Unknown Not Reportable 03/09/19 Unknown Not Reportable 03/09/19 Unknown Hem Pathologist Commnt No 03/09/19 Unknown PT 12.7 Sec. (12.2-14.9) 03/09/19 Unknown INR 0.98 (0.87-1.13) 03/09/19 Unknown APTT 29.7 Sec. (24.2-36.6) 03/09/19 Unknown 15.4 Sec. (15.1-19.6) 03/09/19 Unknown Sodium TNR 03/09/19 Unknown Potassium TNR 03/09/19 Unknown Chloride TNR 03/09/19 Unknown Carbon Dioxide TNR 03/09/19 Unknown TNR 03/09/19 Unknown BUN TNR 03/09/19 Unknown TNR 03/09/19 Unknown Estimated GFR TNR 03/09/19 Unknown TNR 03/09/19 Unknown Glucose TNR 03/09/19 Unknown POC Glucose 90 (70-105) 03/09/19 13:23 Calcium TNR 03/09/19 Unknown 0.20 mg/dL (0.1-1.2) 03/09/19 17:13 AST 12 units/L (5-40) 03/09/19 17:13 ALT 13 units/L (7-56) 03/09/19 17:13 85 units/L (35-129) 03/09/19 17:13 TNR 03/09/19 Unknown CK-MB (CK-2) TNR 03/09/19 Unknown CK-MB (CK-2) Rel Index TNR 03/09/19 Unknown TNR 03/09/19 Unknown 7.2 g/dL (6.3-8.2) 03/09/19 17:13 3.8 g/dL (3.9-5) L 03/09/19 17:13 1.1 % 03/09/19 17:13 Triglycerides 113 mg/dL (2-149) 03/10/19 09:38 Cholesterol 154 mg/dL (50-199) 03/10/19 09:38 116 mg/dL (50-130) 03/10/19 09:38 32 mg/dL (40-59) L 03/10/19 09:38 4.81 % 03/10/19 09:38 Yellow (Yellow) 03/10/19 08:45 Cloudy (Clear) 03/10/19 08:45 5.0 (5.0-7.0) 03/10/19 08:45 Ur Specific [place] 1.038 (1.003-1.030) H 03/10/19 08:45 <15 mg/dl mg/dL (Negative) 03/10/19 08:45 Neg mg/dL (Negative) 03/10/19 08:45 Neg mg/dL (Negative) 03/10/19 08:45 Sm (Negative) 03/10/19 08:45 Neg (Negative) 03/10/19 08:45 Neg (Negative) 03/10/19 08:45 < 2.0 mg/dL (<2.0) 03/10/19 08:45 Ur Leukocyte Esterase Sm (Negative) 03/10/19 08:45 8.0 /HPF (0.0-6.0) H 03/10/19 08:45 4.0 /HPF (0.0-6.0) 03/10/19 08:45 U Epithel Cells (Auto) 16.0 /HPF (0-13.0) H 03/10/19 08:45 1+ /HPF (Negative) 03/10/19 08:45 1+ /HPF 03/10/19 08:45 Active Medications - Current Medications Current Medications: Generic Name Dose Route Start Last Admin Trade Name Odalys PRN Reason Stop Dose Admin Acetaminophen 650 mg 03/09/19 14:39 Tylenol PO Q4H PRN Pain, Mild (1-3) Acetaminophen/Hydrocodone Bitart 1 each 03/09/19 14:42 [place] 5/325 PO Q6H PRN Pain , Severe (7-10) Albuterol 2.5 mg 03/09/19 14:39 Proventil IH Q3HRT PRN Shortness Of Breath Aspirin 325 mg 03/10/19 10:00 03/11/19 09:08 Aspirin PO 325 mg QDAY [facility] Administration Atorvastatin Calcium 40 mg 03/09/19 22:00 03/10/19 21:38 Lipitor PO 40 mg QHS [facility] Administration Bisacodyl 10 mg 03/09/19 14:39 Dulcolax DC QDAY PRN Constipation Ceftriaxone Sodium 1 gm in 50 mls @ 100 mls/hr 03/09/19 14:44 03/11/19 09:09 Rocephin/Ns 1 Gm/50 Ml IV 03/11/19 23:59 100 mls/hr Q24HR [facility] Administration Protocol Magnesium Hydroxide 30 ml 03/09/19 14:39 Milk Of Magnesia PO Q4H PRN Constipation Metoclopramide HCl 10 mg 03/09/19 14:39 Reglan PO Q6H PRN Nausea And Vomiting Nicotine 21 mg 03/10/19 10:00 03/11/19 09:08 Habitrol TD 21 mg QDAY [facility] Administration Ondansetron HCl 4 mg 03/09/19 14:39 Zofran IV Q8H PRN Nausea And Vomiting Promethazine HCl 25 mg 03/09/19 14:39 Phenergan DC Q6H PRN Nausea And Vomiting Sodium Chloride 10 ml 03/09/19 14:39 Sodium Chloride Flush Syringe 10 Ml IV PRN PRN LINE FLUSH
--- NOTE | 2019-03-11 13:54 | Discharge Summary ---
Providers - Providers Date of Admission: 03/09/19 14:39 Date of discharge: 03/11/19 Attending physician: TAYLOR TURNER 03/09/19 14:40 Occupational Therapy Evaluate and Treat [CONS] Routine Comment: Reason For Exam: Neuro deficits Physical Therapy Evaluation and Treat [CONS] Routine Comment: Reason For Exam: Neuro deficits 03/09/19 14:57 Consult to Physician [CONS] Routine Comment: Consulting Provider: EARSTO ZAZUETA Physician Instructions: Reason For Exam: CVA Primary care physician: KECIA CAMARA Hospitalization Reason for admission: h/a Condition: Stable Hospital course: This 48-year-old right-handed -[place] female developed vertigo 2 mornings ago at 7 AM when she sat up, with nausea and right temporal headache. Her BP was noted to be elevated prior to admission, 196/129 on automatic cuff and 160/100 when taken manually. She was then sent by ambulance to the [facility]. She reported retromastoid and right temporal headaches. Negative MRI (except mild cerebral atrophy)/MRA/echo with bubbles/CTAs head and neck. LDL was 116, HDL 32, triglycerides 113. Neuro saw pt in consultation and reported that h/a was likely Vestibular migraine and her paresthesias and even her headache could've been from hypertension. Pt will be discharged with Labetalol BID, aspirin and atorvastatin. D/C time 32 minutes Disposition: DC-[id number] TO HOME OR SELFCARE Time spent for discharge: 32 - Discharge Diagnoses (1) HTN (hypertension) Status: Acute Qualifiers: Hypertension type: essential hypertension Qualified Code(s): I10 - Essential (primary) hypertension (2) Obesity Status: Acute Qualifiers: Obesity type: due to excess calories Body mass index: BMI 32.0-32.9 (3) SIRS (systemic inflammatory response syndrome) Status: Acute (4) UTI (urinary tract infection) Status: Acute Core Measure Documentation - Palliative Care Palliative Care/ Comfort Measures: Not Applicable - Core Measures Any of the following diagnoses?: none Exam - Constitutional Vitals: Temp Pulse Resp BP Pulse Ox 98.2 F 61 18 138/78 99 03/11/19 13:02 03/11/19 13:02 03/11/19 13:02 03/11/19 13:02 03/11/19 13:02 General appearance: Present: no acute distress, well-nourished - EENT Eyes: Present: PERRL ENT: hearing intact, clear oral mucosa - Neck Neck: Present: supple, normal ROM - Respiratory Respiratory effort: normal Respiratory: bilateral: CTA - Cardiovascular Heart Sounds: Present: S1 & S2. Absent: rub, click - Extremities Extremities: pulses symmetrical, No edema Peripheral Pulses: within normal limits - Abdominal General gastrointestinal: Present: soft, non-tender, non-distended, normal bowel sounds Female genitourinary: Present: normal - Integumentary Integumentary: Present: clear, warm, dry - Musculoskeletal Musculoskeletal: gait normal, strength equal bilaterally - Psychiatric Psychiatric: appropriate mood/affect, intact judgment & insight - Neurologic Neurologic: CNII-XII intact, moves all extremities Plan Activity: no restrictions Weight Bearing Status: Full Weight Bearing Diet: regular
--- NOTE | 2019-03-12 17:38 | Vascular Lab Report ---
PROCEDURE: VL CAROTID DUPLEX BILAT TECHNIQUE: Ultrasound carotid arteries with color Doppler evaluation HISTORY: stroke COMPARISONS: FINDINGS: Right common carotid demonstrates normal sonographic appearance. There is normal flow velocity with p eak systolic velocity of 61 cm/s and diastolic velocity 20 cm/s There is some smooth plaque formation within the right ICA with peak systolic velocity of 87 cm per s ec and end-diastolic velocity 45 cm/s Antegrade flow is seen within the right vertebral artery. The left common carotid artery demonstrates normal sonographic appearance with peak systolic velocity of 75 cm/s and diastolic velocity 26 cm/s There is some smooth plaque formation noted within the left internal carotid artery peak systolic jefry ocity 74 cm/s and diastolic velocity 32 cm/s Antegrade flow seen within the left vertebral artery IMPRESSION: Some plaque formation noted within the internal carotid arteries bilaterally. No evidence for hemodyn amically significant stenosis. Less than 50% range bilaterally This document is electronically signed by Emmanuel Araiza MD., March 12 2019 05:36:39 PM ET
== END 2019-03-11 15:15 | disposition home or self-care (01) | DRG 305 ==
LOC: ED 10:41 → 4A 14:39
PROVIDERS: ADMIT Internal Medicine; ATTEND Hospitalist
DX: I10 Essential (primary) hypertension (principal); R65.10 Systemic inflammatory response syndrome (SIRS) of non-infectious origin without acute organ dysfunction; F17.213 Nicotine dependence, cigarettes, with withdrawal; N39.0 Urinary tract infection, site not specified; G43.809 Other migraine, not intractable, without status migrainosus; E66.9 Obesity, unspecified; Z71.6 Tobacco abuse counseling; Z91.19 Patient's noncompliance with other medical treatment and regimen; Z68.38 Body mass index [BMI] 38.0-38.9, adult; Z82.49 Family history of ischemic heart disease and other diseases of the circulatory system; Z98.51 Tubal ligation status; Z82.3 Family history of stroke; Z83.3 Family history of diabetes mellitus
CPT/HCPCS: 36415; 70450; 70496; 70498; 70544; 70551; 80048; 80053; 80061; 81001; 82962; 84484; 85007; 85025; 85610; 85670; 85730; 93005; 93010; 93306; 93880; G0378; A9270-GY; J0696; J1885; Q0162; Q9967